=== PATIENT | male | born 1985 | race African-American/Black ===

== ENCOUNTER 2019-12-18 01:23 | Emergency (ER) | payer MEDICAID ==
[~2019-12-18] VITALS: Ht 170.2 cm; Wt 91.0 kg
[2019-12-18] MEDS ORDERED: ONDANSETRON HCL 4MG/2ML INJ IV STA (02:31)
[2019-12-18] MEDS ORDERED: LORAZEPAM 2MG/ML CPJ IV ONE (02:45)
[2019-12-18 02:50] LABS: BASOPHILS % 1.2 % (0.0-2.0); EOSINOPHILS % 3.6 % (0.0-5.0); HEMOGLOBIN. 15.2 g/dL (14.0-18.0); LYMPHOCYTES % 36.8 % (20.0-50.0); MEAN CORPUSCULAR HEMOGLOBIN 34.8 pg (28.0-32.0); MEAN CORPUSCULAR VOLUME 98.3 fL (80.0-94.0); MEAN PLATELET VOLUME 8.3 fl (7.4-10.4); NEUTROPHILS % 48.4 % (40.0-76.0); PLATELET 199 x1000/uL (130-400); RED BLOOD CELL COUNT 4.37 mill/uL (4.7-6.1); RED CELL DISTRIBUTION WIDTH 12.7 % (11.6-14.6)
[2019-12-18 02:58] LABS: CHLORIDE 103 mEq/L (98-107)
[2019-12-18 06:30] VITALS: BP 132/75
== END 2019-12-18 06:49 | disposition home or self-care (01) ==
LOC: ER 01:23
DX: F41.9 Anxiety disorder, unspecified (principal); R06.00 Dyspnea, unspecified; I10 Essential (primary) hypertension
CPT/HCPCS: 36415; 71045; 80053; 83880; 84484; 85025; 93005; 96374; 96375; 99285; J2060; J2405

== ENCOUNTER 2020-05-27 04:50 | Emergency (ER) | payer MEDICAID ==
[~2020-05-27] VITALS: Ht 170.2 cm; Wt 90.0 kg
[2020-05-27] MEDS ORDERED: SODIUM CHLORIDE 0.9% 1,000 ML IV ONE (06:15)
[2020-05-27] MEDS ORDERED: LORAZEPAM 1MG TABLET PO ONE (06:45)
[2020-05-27 06:50] LABS: BASOPHILS % 0.9 % (0.0-2.0); EOSINOPHILS % 0.1 % (0.0-5.0); HEMATOCRIT. 45.4 % (42.0-52.0); HEMOGLOBIN. 15.6 g/dL (14.0-18.0); LYMPHOCYTES % 19.2 % (20.0-50.0); MEAN CORPUSCULAR HEMOGLOBIN 34.3 pg (28.0-32.0); MEAN CORPUSCULAR VOLUME 99.5 fL (80.0-94.0); MEAN PLATELET VOLUME 8.6 fl (7.4-10.4); MONOCYTES % 13.2 % (2.0-8.0); NEUTROPHILS % 66.6 % (40.0-76.0); PLATELET 228 x1000/uL (130-400); RED BLOOD CELL COUNT 4.56 mill/uL (4.7-6.1)
[2020-05-27 07:01] LABS: CHLORIDE 102 mEq/L (98-107)
[2020-05-27 07:21] LABS: ETHANOL BLOOD < 10 mg/dL
[2020-05-27] MEDS ORDERED: OLANZAPINE 5MG TABLET ODT PO ONE (08:15)
[2020-05-27 09:26] LABS: *AMPHETAMINES SCREEN URINE PRESUMTIVE POSITIVE (NEGATIVE); *BARBITURATES SCREEN URINE NEGATIVE (NEGATIVE); *BENZODIAZEPINES SCREEN URINE NEGATIVE (NEGATIVE); *COCAINE SCREEN URINE NEGATIVE (NEGATIVE)
[2020-05-27 09:27] LABS: CANNABINOID URINE SCREEN NEGATIVE (NEGATIVE); METHADONE URINE SCREEN NEGATIVE (NEGATIVE); OPIATES URINE SCREEN NEGATIVE (NEGATIVE); PHENCYCLIDINE URINE SCREEN NEGATIVE (NEGATIVE)
[2020-05-27 13:00] VITALS: BP 125/86
== END 2020-05-27 13:15 | disposition home or self-care (01) ==
LOC: ER 04:50
DX: R07.89 Other chest pain (principal); F15.10 Other stimulant abuse, uncomplicated; Z98.890 Other specified postprocedural states
CPT/HCPCS: 36415; 71045; 80053; 80305; 80320; 83690; 83880; 84484; 85025; 93005; 96360; 96361; 99285; J7030; G0480

== ENCOUNTER 2020-05-28 10:47 | Emergency (ER) | payer MEDICAID ==
[~2020-05-28] VITALS: Ht 177.8 cm; Wt 83.0 kg
[2020-05-28 12:01] VITALS: BP 123/81
== END 2020-05-28 12:03 | disposition home or self-care (01) ==
LOC: ER 10:55
DX: F15.90 Other stimulant use, unspecified, uncomplicated (principal); F41.9 Anxiety disorder, unspecified
CPT/HCPCS: 99283